=== PATIENT | female | born 1960 | race Caucasian/White ===

== ENCOUNTER 2024-05-15 09:04 | Outpatient (CLI) | payer OTHER, SELFPAY ==
--- NOTE | ~2024-05-15 | XR_ITS ---
EXAMINATION: XR scoliosis survey DATE: 05/15/2024 10:07 INDICATION: Low back pain. Scoliosis. TECHNIQUE: Anteroposterior and lateral views of the entire spine standing were obtained. COMPARISON: None. FINDINGS: Right femoral head stands 3 mm higher than the left. There are 12 pairs of ribs. There are 5 nonrib-bearing lumbar segments. There is 22 degrees dextroscoliosis from T3 to T7 by the Sanchez metho d. There is 5 degrees levocurvature from T7 to T10. There is 4 degrees dextrocurvature from T10 to L1 . There is 12 degrees levoscoliosis from L1 to L4. There is severe cervical spondylosis, mild thoraci c spondylosis, and mild lumbar spondylosis. There are surgical clips in the abdomen and pelvis. IMPRESSION: 1. Scoliosis. Reviewed, dictated and finalized at location B. IMPRESSION: 1. Scoliosis.
--- NOTE | ~2024-05-15 | XR_ITS ---
EXAMINATION: XR hip LT min 2V DATE: 05/15/2024 10:07 INDICATION: Left hip pain. TECHNIQUE: 2 views of left hip were obtained. COMPARISON: None. FINDINGS: Alignment is normal. No fracture. Left hip joint space is normal. Tubal ligation clips are noted. IMPRESSION: 1. Normal left hip. Reviewed, dictated and finalized at location B. IMPRESSION: 1. Normal left hip.
== END 2024-05-15 09:05 | disposition home or self-care (01) ==
PROVIDERS: PCP Chiropractor; Visit Provider Chiropractor
DX: M41.84 Other forms of scoliosis, thoracic region (principal); M41.85 Other forms of scoliosis, thoracolumbar region; M41.86 Other forms of scoliosis, lumbar region; M25.551 Pain in right hip
CPT/HCPCS: 72082; 73502